=== PATIENT | female | born 2000 | race Caucasian/White ===

== ENCOUNTER 2021-06-20 11:41 | Inpatient (IN) | payer BC ==
[2021-06-19 10:10] VITALS: BP 130/90
[~2021-06-20] VITALS: Ht 152.4 cm; Wt 67.1 kg
[2021-06-20] MEDS ORDERED: LORAZEPAM 2MG/ML CPJ IV STA (11:53)
[2021-06-20] MEDS ORDERED: SODIUM CHLORIDE 0.9% 1,000 ML IV ONE (12:00)
[2021-06-20 12:25] LABS: BASOPHILS % 0.9 % (0.0-2.0); EOSINOPHILS % 0.1 % (0.0-5.0); HEMATOCRIT. 42.4 % (36.0-48.0); HEMOGLOBIN. 14.3 g/dL (12.0-16.0); LYMPHOCYTES % 12.1 % (20.0-50.0); MEAN CORPUSCULAR HEMOGLOBIN 30.2 pg (28.0-32.0); MEAN CORPUSCULAR VOLUME 89.3 fL (81.0-99.0); MEAN PLATELET VOLUME 8.7 fl (7.4-10.4); MONOCYTES % 3.6 % (2.0-8.0); NEUTROPHILS % 83.3 % (40.0-76.0); PLATELET 362 x1000/uL (130-400); RED BLOOD CELL COUNT 4.75 mill/uL (4.2-5.4); RED CELL DISTRIBUTION WIDTH 13.2 % (11.6-14.6)
[2021-06-20 12:33] LABS: CHLORIDE 111 mEq/L (98-107)
[2021-06-20 12:37] LABS: ETHANOL BLOOD < 10 mg/dL
[2021-06-20 12:46] LABS: CREATINE KINASE 74 IU/L (26-192)
[2021-06-20 12:51] LABS: HCG SCREEN NEGATIVE
[2021-06-20 13:01] LABS: CLARITY URINE CLEAR (CLEAR); COLOR URINE YELLOW (YELLOW); KETONES URINE 1+ (NEGATIVE); LEUKOCYTE ESTERASE URINE NEGATIVE (NEGATIVE); NITRITE URINE NEGATIVE (NEGATIVE); OCCULT BLOOD URINE NEGATIVE (NEGATIVE); PROTEIN URINE TRACE (NEGATIVE); SPECIFIC GRAVITY URINE 1.024 (1.005-1.030)
[2021-06-20 13:15] LABS: *AMPHETAMINES SCREEN URINE NEGATIVE (NEGATIVE)
[2021-06-20 13:16] LABS: *BARBITURATES SCREEN URINE NEGATIVE (NEGATIVE); *BENZODIAZEPINES SCREEN URINE NEGATIVE (NEGATIVE); *COCAINE SCREEN URINE NEGATIVE (NEGATIVE); CANNABINOID URINE SCREEN NEGATIVE (NEGATIVE); METHADONE URINE SCREEN NEGATIVE (NEGATIVE); OPIATES URINE SCREEN NEGATIVE (NEGATIVE); PHENCYCLIDINE URINE SCREEN NEGATIVE (NEGATIVE)
[2021-06-20] MEDS ORDERED: ZOLPIDEM TARTRATE 5MG TABLET PO PRN (16:30)
[2021-06-20] MEDS ORDERED: GUAIFENESIN 200MG/10ML SUGAR FREE UDC PO PRN (16:30)
[2021-06-20] MEDS ORDERED: CLONIDINE 0.1MG TABLET PO PRN (16:30)
[2021-06-20] MEDS ORDERED: IPRATROPIUM/ALBUTEROL 0.5-3(2.5)MG/3ML NEB NEB PRN (16:30)
[2021-06-20] MEDS ORDERED: ACETAMINOPHEN 325MG TABLET PO PRN (16:30)
[2021-06-20] MEDS ORDERED: ONDANSETRON HCL 4MG/2ML INJ IV PRN (16:30)
[2021-06-20] MEDS ORDERED: KETOROLAC 15MG/ML VIAL IV PRN (16:30)
[2021-06-20] MEDS: SODIUM CHLORIDE 0.9% 1,000 ML IV SCH (16:59)
[2021-06-20] MEDS: FAMOTIDINE 20MG TABLET PO SCH (21:40)
[2021-06-21] MEDS: SODIUM CHLORIDE 0.9% 1,000 ML IV SCH (05:51)
[2021-06-21 06:19] LABS: EOSINOPHILS % 0.9 % (0.0-5.0); LYMPHOCYTES % 26.5 % (20.0-50.0); MEAN CORPUSCULAR HEMOGLOBIN 30.8 pg (28.0-32.0); MEAN PLATELET VOLUME 8.7 fl (7.4-10.4); MONOCYTES % 7.5 % (2.0-8.0); NEUTROPHILS % 64.1 % (40.0-76.0); PLATELET 298 x1000/uL (130-400); RED BLOOD CELL COUNT 4.23 mill/uL (4.2-5.4); RED CELL DISTRIBUTION WIDTH 13.4 % (11.6-14.6)
[2021-06-21 06:35] LABS: CHLORIDE 109 mEq/L (98-107)
[2021-06-21 06:41] LABS: PHOSPHORUS 2.9 mg/dL (2.5-4.9)
[2021-06-21 06:46] LABS: CREATINE KINASE 50 IU/L (26-192)
[2021-06-21 06:47] LABS: CREATINE KINASE MB FRACTION < 1.0 ng/mL (0.5-3.6)
[2021-06-21] MEDS ORDERED: FLUOXETINE HCL 10 MG CAPSULE PO SCH (09:30)
[2021-06-21] MEDS ORDERED: BUPR150T3 MT (09:34)
[2021-06-21 10:04] VITALS: BP 130/98
[2021-06-21] MEDS ORDERED: BUPROPION HCL 150MG TABLET XL 24HR PO SCH (11:00)
[2021-06-21] MEDS: FAMOTIDINE 20MG TABLET PO SCH (12:57)
[2021-06-21 13:00] VITALS: BP 117/69
[2021-06-21 16:34] LABS: CREATINE KINASE 48 IU/L (26-192)
[2021-06-21 16:35] LABS: CREATINE KINASE MB FRACTION < 1.0 ng/mL (0.5-3.6)
[2021-06-21 17:57] VITALS: BP 125/76
[2021-06-21 18:01] VITALS: BP 130/90
== END 2021-06-21 18:27 | DRG 918 ==
LOC: ER 11:41 → MICUSO 15:13 → EDBEDREQTM 16:29 → EDBEDREQ 16:29 → 5WST 06-21 09:01
PROVIDERS: ADMIT Internal Medicine; ATTEND Internal Medicine
DX: T43.222A Poisoning by selective serotonin reuptake inhibitors, intentional self-harm, initial encounter (principal); T43.292A Poisoning by other antidepressants, intentional self-harm, initial encounter; F41.9 Anxiety disorder, unspecified; F90.9 Attention-deficit hyperactivity disorder, unspecified type; Z20.822 Contact with and (suspected) exposure to COVID-19; E66.9 Obesity, unspecified; F32.A Depression, unspecified; Z63.8 Other specified problems related to primary support group; Z91.14 Patient's other noncompliance with medication regimen; Z91.51 Personal history of suicidal behavior; Z68.28 Body mass index [BMI] 28.0-28.9, adult; Y92.89 Other specified places as the place of occurrence of the external cause
CPT/HCPCS: 36415; 71045; 80053; 80305; 80307; 80320; 80329; 81003; 82140; 82550; 82553; 82962; 83605; 83735; 83880; 84100; 84443; 84484; 84703; 85025; 87426; 93005; 99291; J7030; G0480